=== PATIENT | female | born 1965 | race Asian ===

== ENCOUNTER 2017-02-06 15:16 | Outpatient (CLI) | payer OTHER ==
--- NOTE | 2017-02-07 11:31 | Mammography Report ---
BILATERAL DIGITAL SCREENING MAMMOGRAM with CAD: 02/06/17 15:16:00 CLINICAL: Routine screening. COMPARISON:06/29/13 and 12/31/11 FINDINGS: The breasts are almost entirely fatty.An 8 mm oval circumscribed smooth benign right lower inner mass with a couple of calcifications. No other mass, architectural distortion or suspicious calcifications. IMPRESSION: No mammographic evidence of malignancy. BI-RADS CATEGORY: 2 -- Benign RECOMMENDATION: Routine mammographic screening in one year. COMMENT: Patient follow-up letters are generated by our [employer] application.
== END 2017-02-06 15:17 | disposition home or self-care (01) ==
LOC: SPVWC 15:16
PROVIDERS: ATTEND Obstetrics & Gynecology
DX: Z12.31 Encounter for screening mammogram for malignant neoplasm of breast (principal)
CPT/HCPCS: 77067; G0202